=== PATIENT | female | born 1945 | race Caucasian/White ===

== ENCOUNTER → 2017-06-15 | Outpatient (CLI) | payer OTHER | LOC: CIMAGING 13:57 | PROVIDERS: ATTEND Internal Medicine | DX: Z12.31 Encounter for screening mammogram for malignant neoplasm of breast (principal) | CPT/HCPCS: G0202 ==

== ENCOUNTER → 2017-07-05 | Outpatient (CLI) | payer OTHER | LOC: CIMAGING 12:41 | PROVIDERS: ATTEND Internal Medicine | DX: Z12.39 Encounter for other screening for malignant neoplasm of breast (principal); R92.8 Other abnormal and inconclusive findings on diagnostic imaging of breast | CPT/HCPCS: G0206 ==

== ENCOUNTER 2019-02-15 16:59 | Inpatient (IN) | payer OTHER ==
[2019-02-15] MEDS ORDERED: NS 1,000 ML IV ONE (17:23)
[2019-02-15] MEDS ORDERED: KETOROLAC 30 MG/1 ML SDV IVP ONE (17:25)
--- NOTE | 2019-02-15 17:25 | EDPHY ---
H & P Stated Complaint: sob phipps fatigue x 1 week , had cruise and flight from [facility] Time Seen by Provider: 02/15/19 17:17 HPI/ROS: CHIEF COMPLAINT: Shortness of breath, palpitations and headache HISTORY OF PRESENT ILLNESS: The patient is a 73-year-old female with history of fibromyalgia and PVCs controlled with metoprolol. She reports experiencing flushing, shortness of breath and palpitations when she got off the flight from a recent cruise trip on Monday. Her had to get her a wheelchair in the airport because she was so short of breath. Throughout the week she has had intermittent return of her symptoms accompanied by headache and neck and shoulder and upper back pain. Today her symptoms got significantly worse again when she was at an event with her they decided to come to the emergency department. 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 She is not a smoker. She is not diabetic. She denies coronary artery disease. She has not had any vision changes. No focal weakness deficits or stroke-like symptoms. No lightheadedness or fainting. Severity: Moderate Modifying factors: Intermittent without predictable pattern REVIEW OF SYSTEMS: Constitutional: denies: chills, fever, recent illness, recent injury EENTM: denies: blurred vision, double vision, nose congestion Respiratory: See HPI Cardiac: See HPI denies: chest pain, lightheadedness, Gastrointestinal/Abdominal: denies: abdominal pain, diarrhea, nausea, vomiting, blood streaked stools Genitourinary: denies: dysuria, frequency, hematuria, pain Musculoskeletal: See HPI Skin: denies: lesions, rash, jaundice, bruising Neurological: See HPI, denies numbness weakness or paresthesias. Hematologic/Lymphatic: denies: blood clots, easy bleeding, easy bruising Immunologic/allergic: denies: HIV/AIDS, transplant 10 systems reviewed and negative except as noted EXAM: GENERAL: Well-appearing, overweight and in no acute distress. HEAD: Atraumatic, normocephalic. EYES: Pupils equal round and reactive to light, extraocular movements intact, sclera anicteric, conjunctiva are normal. ENT: TMs normal, nares patent, oropharynx clear without exudates. Moist mucous membranes. NECK: Normal range of motion, supple without lymphadenopathy or JVD. LUNGS: Breath sounds clear to auscultation bilaterally and equal. No wheezes rales or rhonchi. HEART: Regular rate and rhythm without murmurs, rubs or gallops. ABDOMEN: Soft, nontender, normoactive bowel sounds. No guarding, no rebound. No masses appreciated. BACK: No CVA tenderness, no spinal tenderness, step-offs or deformities EXTREMITIES: Normal range of motion, no pitting or edema. No clubbing or cyanosis. NEUROLOGICAL: Cranial nerves II through XII grossly intact. Normal speech, normal gait. 5/5 strength, normal movement in all extremities, normal sensation , normal reflexes PSYCH: Normal mood, normal affect. SKIN: Warm, dry, normal turgor, no visible rashes or lesions. Source: Patient Exam Limitations: No limitations - Personal History Current Tetanus/Diphtheria Vaccine: Unsure Current Tetanus Diphtheria and Acellular Pertussis (TDAP): Unsure - Medical/Surgical History Hx Asthma: No Hx Chronic Respiratory Disease: No Hx Diabetes: No Hx Cardiac Disease: No Hx Renal Disease: No Hx Cirrhosis: No Hx Alcoholism: No Hx HIV/AIDS: No Hx Splenectomy or Spleen Trauma: No Other PMH: fibromyalgia, anxiety, htn, tonsils, gb, hyst. PVC's - Family History Significant Family History: No pertinent family hx - Social History Smoking Status: Never smoked Alcohol Use: None Constitutional: Initial Vital Signs Temperature (C) 36.8 C 02/15/19 17:06 Heart Rate 90 02/15/19 17:06 Respiratory Rate 18 02/15/19 17:06 Blood Pressure 152/100 H 02/15/19 17:06 O2 Sat (%) 90 L 02/15/19 17:06 O2 Delivery Mode Room Air Allergies/Adverse Reactions: Penicillins Allergy (Verified 02/15/19 17:12) Sulfa (Sulfonamide Antibiotics) Allergy (Verified 02/15/19 17:12) Home Medications: Medication Instructions Recorded Metoprolol Tartrate [Lopressor 25 25 mg PO BID 03/02/15 mg (*)] Amitriptyline HCl 02/15/19 Citalopram 02/15/19 Valsartan-Hctz 80-12.5 mg Tab 02/15/19 levOFLOXACIN [levAQUIN] 750 mg PO DAILY #10 tab 02/15/19 Medical Decision Making - Diagnostics EKG Interpretation: An EKG obtained and was read and documented in trace view. Please see trace view for full reading and report. Sinus rhythm, nonspecific T-wave abnormalities unchanged from previous in 2014 A repeat EKG obtained and was read and documented in trace view. Please see trace view for full reading and report. Sinus rhythm, nonspecific T-wave abnormalities, unchanged Imaging Results: Imaging Impressions Chest X-Ray 02/15/19 17:23 Impression: 1. Left lower lobe pneumonia. 2. Superimposed bronchitis/airways disease. 3. Chronically elevated right hemidiaphragm. 4. Recommend follow-up until clear. Head CT 02/15/19 17:23 Impression: There is no acute intracranial abnormality identified on this unenhanced CT evaluation. If there is further clinical concern regarding the patient's symptoms, MR imaging is suggested, if not otherwise contraindicated. Findings were discussed with KELLIE HAMMOND MD at 17:51, on 02/15/2019. Abdomen/Pelvis CTA 02/15/19 18:08 Impression: 1. Atherosclerotic abdominal aorta, without aneurysm or dissection. 2. Sigmoid diverticulosis, without diverticulitis or bowel obstruction. Findings and recommendations discussed with Emergency Department physician, Kellie Hammond M.D., at 1850 hours, on February 15, 2019. Final report concurs with initial preliminary interpretation. Chest/Thorax CTA 02/15/19 18:08 Impression: 1. No aortic aneurysm or dissection. 2. No definite pulmonary thromboemboli. 3. Bilateral diffuse nonspecific interstitial lung disease, and therefore superimposed pneumonitis/pneumonia cannot be excluded. Findings and recommendations discussed with Emergency Department physician, Kellie Hammond at 1850 hour, 02/15/2019. Final report concurs with initial preliminary interpretation. Imaging: Discussed imaging studies w/ heavy equipment service technician Radiologist ED Course/Re-evaluation: 6:00 p.m. the patient had sudden onset of back pain below her shoulder blades. She describes it as a pressure. On evaluation she is scared in tearful. She denies chest pain or shortness of breath or abdominal pain. I have ordered a CT scan to evaluate her aorta. She is not hypotensive. Her EKG is unchanged. 7:30 p.m. the patient is doing well. She is saturating 96% on room air. She is feeling better. Antibiotics are infusing. She does not have any QT prolongation on her EKG today. We discussed the potential complications of Levaquin. She has allergies to penicillin and sulfa. 8:15 p.m. the patient is desaturating to 82% on room air. She wear CPAP at night but she is not currently sleeping. Will admit for further workup. Will add blood cultures and lactate. Differential Diagnosis: Partial list of the Differential diagnosis considered include but were not limited to; pneumonia, PE, dissection and although unlikely based on the history and physical exam, I also considered aneurysm, migraine, acute coronary disease, sepsis. - Data Points Laboratory Results: 02/15/19 02/15/19 18:13 18:02 POC Sodium 146 mEq/L H mEq/L (135-145) POC Potassium 4.0 mEq/L mEq/L (3.3-5.0) POC Chloride 99.0 mEq/L mEq/L (97-110) POC Total CO2 29 mEq/L mEq/L (22-31) POC BUN 16 mg/dL mg/dL (7-23) POC Creatinine 1.0 mg/dL mg/dL (0.6-1.0) POC Glucose 100 mg/dL mg/dL (70-100) POC Calcium 9.8 mg/dL mg/dL (8.5-10.4) POC Total Bilirubin 0.6 mg/dL mg/dL (0.1-1.4) POC AST 28 IU/L IU/L (14-46) POC ALT 23 IU/L IU/L (9-52) POC Alk Phosphatase 76 IU/L IU/L (38-126) POC Troponin I 0.00 ng/mL ng/mL (0.00-0.08) POC Total Protein 7.1 g/dL g/dL (6.3-8.2) POC Albumin 3.2 g/dL L g/dL (3.5-5.0) Medications Given: Discontinued Medications Sodium Chloride (Ns) 1,000 mls @ 0 mls/hr IV ONCE ONE; Wide Open PRN Reason: Protocol Stop: 02/15/19 17:24 Last Admin: 02/15/19 18:12 Dose: 1,000 mls Levofloxacin/Dextrose (Levaquin 750 Mg (Premix)) 150 mls @ 100 mls/hr IV EDNOW ONE PRN Reason: Protocol Stop: 02/15/19 20:24 Last Admin: 02/15/19 19:30 Dose: 150 mls Ketorolac Tromethamine (Toradol) 15 mg IVP EDNOW ONE Stop: 02/15/19 17:26 Last Admin: 02/15/19 18:14 Dose: 15 mg Point of Care Test Results: CBC CBC Collection Date 02/15/19 CBC Collection Time 17:55 WBC 7.80 RBC 4.11 HGB 13.2 HCT 40.6 PLT 265 Neut # 4.67 Neut 59.9 LYMPH # 1.84 LYMPH 23.3 MCV 98.8 Chemistry 02/15/19 02/15/19 18:13 18:02 POC Sodium 146 mEq/L H mEq/L (135-145) POC Potassium 4.0 mEq/L mEq/L (3.3-5.0) POC Chloride 99.0 mEq/L mEq/L (97-110) POC Total CO2 29 mEq/L mEq/L (22-31) POC BUN 16 mg/dL mg/dL (7-23) POC Creatinine 1.0 mg/dL mg/dL (0.6-1.0) POC Glucose 100 mg/dL mg/dL (70-100) POC Calcium 9.8 mg/dL mg/dL (8.5-10.4) POC Total Bilirubin 0.6 mg/dL mg/dL (0.1-1.4) POC AST 28 IU/L IU/L (14-46) POC ALT 23 IU/L IU/L (9-52) POC Alk Phosphatase 76 IU/L IU/L (38-126) POC Troponin I 0.00 ng/mL ng/mL (0.00-0.08) POC Total Protein 7.1 g/dL g/dL (6.3-8.2) POC Albumin 3.2 g/dL L g/dL (3.5-5.0) D-Dimer D-Dimer Collection Date 02/15/19 D-Dimer Collection Time 16:55 D-Dimer (ng/ml) 801 Departure - Departure Disposition: [facility] Acute Clinical Impression: Pneumonia Qualifiers: Pneumonia type: due to unspecified organism Laterality: left Lung location: lower lobe of lung Qualified Code(s): J18.1 - Lobar pneumonia, unspecified organism Condition: Fair
--- NOTE | 2019-02-15 17:58 | CPEKG ---
Test Reason : OPEN Blood Pressure : / mmHG Vent. Rate : 081 BPM Atrial Rate : 081 BPM P-R Int : 167 ms QRS Dur : 091 ms QT Int : 371 ms P-R-T Axes : 037 047 029 degrees QTc Int : 431 ms Sinus rhythm Nonspecific T abnormalities, anterior leads Confirmed by Arian Serna ([id number]) on 02/15/2019 5:57:48 PM Referred By: Arian Serna Confirmed By:Arian Serna
[2019-02-15] MEDS ORDERED: IOPAMIDOL (ISOVUE 370) 100 ML BTL IV ONE (18:20)
[2019-02-15] MEDS ORDERED: ALBUTEROL 3 ML DEYVIAL IH PRN (23:01)
[2019-02-15] MEDS ORDERED: ACETAMINOPHEN 325 MG TAB PO PRN (23:01)
[2019-02-15] MEDS ORDERED: ONDANSETRON DISINTEGRATING 4 MG TAB PO PRN (23:01)
[2019-02-15] MEDS ORDERED: ONDANSETRON 4 MG/2 ML VIAL IVP PRN (23:01)
--- NOTE | 2019-02-15 23:50 | PDGENHP ---
History and Physical - Chief Complaint Shortness of breath - History of Present Illness 73 yo F w/ hx of PVCs on BB, HTN, anxiety, and fibromyalgia presents with shortness of breath. The patient went on a bonny to the [facility] and returned one week ago. Since returning she has experienced shortness of breath, dyspnea on exertion, and fatigue. She has also noted a mild, dry cough but denies fevers. Today she also noted back pain so she presented to the [facility] for evaluation. In the [facility] she was noted to be mildly hypoxic but with 0/4 SIRS criteria. CTA of the chest revealed no PE but bilateral interstitial infiltrates of unclear etiology. She is being admitted for evaluation of this. Case discussed with Dr. Payan; records reviewed and summarized above. History Information - Allergies/Home Medication List Allergies/Adverse Reactions: Penicillins Allergy (Verified 02/15/19 17:12) Sulfa (Sulfonamide Antibiotics) Allergy (Verified 02/15/19 17:12) Home Medications: Metoprolol Tartrate [Lopressor 25 mg (*)] 25 mg PO BID 03/02/15 [Last Taken 22:00] Amitriptyline HCl 02/15/19 [Last Taken Unknown] Citalopram 02/15/19 [Last Taken Unknown] Valsartan-Hctz 80-12.5 mg Tab 02/15/19 [Last Taken Unknown] I have personally reviewed and updated: family history, medical history - Past Medical History hypertension Additional medical history: PVCs, on BB. Anxiety. Fibromyalgia - Surgical History Reports: hysterectomy - Family History Positive for: cancer (Lung CA in her father) - Social History Smoking Status: Never smoked Alcohol Use: None Review of Systems Review of Systems: ROS: 10pt was reviewed & negative except for what was stated in HPI & below Physical Exam Physical Exam: Temp Pulse Resp BP Pulse Ox 36.7 C 78 16 172/95 H 92 02/15/19 22:40 02/15/19 22:40 02/15/19 22:40 02/15/19 22:40 02/15/19 22:40 O2 (L/minute) 2 Constitutional: no apparent distress, obese Eyes: PERRL, EOMI Ears, Nose, Mouth, Throat: moist mucous membranes, no oral mucosal ulcers Cardiovascular: regular rate and rhythym, no murmur, rub, or gallop, No edema Respiratory: no respiratory distress, inspiratory crackles (Bilateral bases) Gastrointestinal: normoactive bowel sounds, soft, non-tender abdomen Skin: warm, normal color Musculoskeletal: full muscle strength, no muscle tenderness Neurologic: AAOx3, CN II-XII Intact Psychiatric: interacting appropriately, not anxious Lab Data & Imaging Review POC Blood Source VENOUS 02/15/19 21:07 Patient Temperature 36.8 DEGREES 02/15/19 21:07 POC VBG pH 7.43 (7.31-7.42) H 02/15/19 21:07 POC VBG pCO2 39 mmHg (40-44) L 02/15/19 21:07 POC VBG pO2 40 mmHg (35-40) 02/15/19 21:07 POC VBG HCO3 26 mEq/L (22-26) 02/15/19 21:07 POC VBG Total CO2 27 mEq/L (21-27) 02/15/19 21:07 POC VBG Base Excess 2.0 mEq/L (-2.5-2.5) 02/15/19 21:07 POC Mix VBG O2 Sat 77 % (65-75) H 02/15/19 21:07 POC Sodium 146 mEq/L (135-145) H 02/15/19 18:02 POC Potassium 4.0 mEq/L (3.3-5.0) 02/15/19 18:02 POC Chloride 99.0 mEq/L (97-110) 02/15/19 18:02 POC Total CO2 29 mEq/L (22-31) 02/15/19 18:02 POC BUN 16 mg/dL (7-23) 02/15/19 18:02 POC Creatinine 1.0 mg/dL (0.6-1.0) 02/15/19 18:02 POC Glucose 100 mg/dL (70-100) 02/15/19 18:02 POC Lactic Acid Kalpesh 2.1 mmol/L (0.7-2.1) 02/15/19 21:07 POC Calcium 9.8 mg/dL (8.5-10.4) 02/15/19 18:02 POC Total Bilirubin 0.6 mg/dL (0.1-1.4) 02/15/19 18:02 POC AST 28 IU/L (14-46) 02/15/19 18:02 POC ALT 23 IU/L (9-52) 02/15/19 18:02 POC Alk Phosphatase 76 IU/L (38-126) 02/15/19 18:02 POC Troponin I 0.00 ng/mL (0.00-0.08) 02/15/19 18:13 POC Total Protein 7.1 g/dL (6.3-8.2) 02/15/19 18:02 POC Albumin 3.2 g/dL (3.5-5.0) L 02/15/19 18:02 Imaging Review: Imaging Impressions Chest X-Ray 02/15/19 17:23 Impression: 1. Left lower lobe pneumonia. 2. Superimposed bronchitis/airways disease. 3. Chronically elevated right hemidiaphragm. 4. Recommend follow-up until clear. Head CT 02/15/19 17:23 Impression: There is no acute intracranial abnormality identified on this unenhanced CT evaluation. If there is further clinical concern regarding the patient's symptoms, MR imaging is suggested, if not otherwise contraindicated. Findings were discussed with ARIAN HAMMOND MD at 17:51, on 02/15/2019. Abdomen/Pelvis CTA 02/15/19 18:08 Impression: 1. Atherosclerotic abdominal aorta, without aneurysm or dissection. 2. Sigmoid diverticulosis, without diverticulitis or bowel obstruction. Findings and recommendations discussed with Emergency Department physician, Arian Hammond M.D., at 1850 hours, on February 15, 2019. Final report concurs with initial preliminary interpretation. Chest/Thorax CTA 02/15/19 18:08 Impression: 1. No aortic aneurysm or dissection. 2. No definite pulmonary thromboemboli. 3. Bilateral diffuse nonspecific interstitial lung disease, and therefore superimposed pneumonitis/pneumonia cannot be excluded. Findings and recommendations discussed with Emergency Department physician, Arian Hammond at 1850 hour, 02/15/2019. Final report concurs with initial preliminary interpretation. Assessment & Plan Assessment: 73 yo F w/ hx of HTN, PVCs, anxiety, and FM presents with hypoxia and found to have possible pneumonia. Plan: 1. Dyspnea on exertion - Present for one week after returning from a cruise. CXR (personally reviewed/interpreted) suggests LLL pneumonia but CTA demonstrated bilateral, diffuse nonspecific infiltrates. 0/4 SIRS criteria present on admission. Viral pneumonia vs. other ILD vs. cardiac etiology are considerations. - S/p levofloxacin x1 in ED - Will observe off of further antibiotics for now - Respiratory PCR, procalcitonin, BNP ordered - Will obtain TTE - Monitor on telemetry 2. Hypoxia - Mild, currently requiring 2-3 L/min O2 to maintain O2 sats>89%. Etiology is presumably related to bilateral infiltrates. She has hx of LUIS but does not use O2 at baseline. - Acute work-up as above - Continue O2 PRN - Incentive spirometry ordered 3. Hx PVCs - On metoprolol for this, she says her last echocardiogram was more than 5 years ago. - Repeat TTE - Monitor on telemetry - Continue metoprolol 4. HTN - Continue home medications pending reconciliation 5. Anxiety, FM - Continue home medications pending reconciliation Diet - Regular Code - Full Ppx - LMWH Dispo - Admit under observation status
[2019-02-16] MEDS ORDERED: METOPROLOL TARTRATE 25 MG TAB PO ONE (00:34)
[2019-02-16] MEDS ORDERED: AMITRIPTYLINE HCL 25 MG TAB PO ONE (00:34)
[2019-02-16 05:23] LABS: PLATELET COUNT 229 10^3/uL (150-400)
[2019-02-16] MEDS: ENOXAPARIN 40 MG/0.4 ML SYR SC SCH (09:32)
--- NOTE | 2019-02-16 14:58 | ECHO ---
[email or web address] [address] [address] Main: [phone] Echocardiography Examination Transthoracic Name: NICK MOORE MR#: [id number] Study Date: 02/16/2019 Study Time: 12:03 PM Date of : 1945 Age: 73 year(s) Height: 160 cm (63 in.) Weight: 85.28 kg (188 lb.) BSA: 1.88 m2 Gender: Female Examination: Echo Contrast: Image Quality: Adequate Rhythm: Normal sinus rhythm Heart Rate: 69 bpm BP: 112 mmHg/62 mmHg Indication: PNA, Hypoxia Procedure Staff Referring Physician: Cluster Bore Operator: Tariq Edward RDCS Reading Physician: Amilcar Trujillo MD Requesting Provider: Indication: PNA, Hypoxia Measurements Chambers AV/MV Label Value Normal Value Label Value Normal Value LVOT Vmax 0.91 m/s (0.7m/s - 1.1m/s) AV PGmax 7 mmHg LVOTd 1.9 cm (1.8cm - 2cm) AV PGmean 4 mmHg LVOT PGmax 3 mmHg AV Vmax 1.3 m/s LVDd, 2D 4.2 cm (3.9cm - 5.3cm) RU (Vmax) 2 cm2 LVDs, 2D 2.6 cm (2.1cm - 4cm) RU (VTI) 1.9 cm2 IVSd, 2D 1 cm (0.6cm - 1.1cm) MV E Vmax 0.83 m/s LVPWd, 2D 1.1 cm MV A Vmax 0.92 m/s LVEF, 2D 68 % (54% - 74%) MV E/A 0.9 LVOT PGmean 2 mmHg MV E/E' lateral 19.8 LVOT Vmean 0.59 m/s MV E/E' septal 17 (0.45 - 1.25) RVDd, 2D 2.6 cm (1.9cm - 3.8cm) MV E' septal 0.05 m/s LA Volume, BP 47 ml (22ml - 52ml) MV E' lateral 0.04 m/s LAESV index, BP 25 ml/m2 MV E/E' mean 18.44 Additional Vessels MV E' mean 0.04 m/s Label Value Normal Value TV/PV AoAsc 3 cm Label Value Normal Value AoRoot, MM 3.1 cm (2.2cm - 3.7cm) PV PGmax 3 mmHg PV Vmax, Caliper 0.81 m/s (0.6m/s - 0.9m/s) Patient: NICK MOORE Study Date: 02/16/2019 Page 1 of 3 12:03 PM Conclusions Left Ventricle: Poor apical views due to lung interference, Pneumonia. Left ventricle is normal in size. Normal global systolic left ventricular function. The EF is visually estimated to be 70 %. Cannot determine LAP and Diastolic Dysfunction Grade. Right Ventricle: Right ventricular systolic function is normal. Pericardium: No pericardial effusion. Findings Left Ventricle: Poor apical views due to lung interference, Pneumonia. Left ventricle is normal in size. Normal global systolic left ventricular function. The EF is visually estimated to be 70 %. EF range is estimated at 65 % - 70 %. The LV wall thickness is at the upper limits of normal. There are no regional wall motion abnormalities. Cannot determine LAP and Diastolic Dysfunction Grade. Right Ventricle: Normal size right ventricle. Right ventricular systolic function is normal. Left Atrium: The left atrium is normal in size. Right Atrium: The right atrium is normal in size. Mitral Valve: Mitral valve appears structurally normal. No mitral regurgitation. No mitral valve stenosis. Aortic Valve: Aortic leaflets are normal in appearance and function. No aortic valve regurgitation. There is no aortic stenosis. The aortic valve is trileaflet. Tricuspid Valve: Tricuspid valve leaflets are normal in appearance and function. No tricuspid regurgitation. Pulmonary artery pressure normal. Pulmonic Valve: Pulmonic leaflets are normal in appearance and function. No pulmonic valve regurgitation is evident. Aorta: The aorta is normal. The aortic root size in M-mode measures 3.1 cm. The ascending aorta measures 3.0 cm. Aorta Measurements AoRoot, MM is 3.1 cm. Pericardium: No pericardial effusion. Exam Details Procedure Ordered: Echo Procedure Status: Routine study Image Quality: Adequate Facility Location: Cardiac Echo 1 (No Signature Object) Patient: NICK MOORE Study Date: 02/16/2019 Page 2 of 3 12:03 PM Patient: NICK MOORE Study Date: 02/16/2019 Page 3 of 3 12:03 PM [id number]
--- NOTE | 2019-02-16 15:10 | HOSPPROG ---
Hospitalist Progress Note Assessment/Plan: 73 yo F w/ hx of HTN, PVCs, anxiety, and FM presents with dyspnea and hypoxemia. Plan: Dyspnea / Hypoxemia - CT suggests ILD vs pneumonitis or pneumonia with diffuse b /l interstitial changes. Also consider HAPE [place] of symptoms. PCT neg, afebrile, nl wbc's. Echo reassuring, BNP nl. Currently 90% on 4 LPM. Reviewed case and imaging with pulmonology, Dr. Weaver will consult tomorrow - Cont Levaquin for possibility of atypical infection - Trial IV lasix for possible HAPE - Start QID nebs - pulm consult in am Hx PVCs - echo reassuring - Continue metoprolol HTN - Continue home meds Anxiety, FM - Continue TCA, SSRI Diet - Regular Code - Full Ppx - LMWH Dispo - change to inpt for ongoing hypoxemia Subjective: Pt feels about the same. Still SOB and tired. Denies wheezing. No fevers/chills. No cough. No CP. No peripheral edema or orthopnea. Objective: Vital Signs Temp Pulse Resp BP Pulse Ox 36.8 C 68 18 112/62 92 02/16/19 11:57 02/16/19 11:57 02/16/19 11:57 02/16/19 11:57 02/16/19 11:57 Laboratory Results 02/16/19 04:44 02/16/19 04:44 02/15/19 02/16/19 02/17/19 05:59 05:59 05:59 Intake Total 1525 Output Total 400 Balance 1125 - Physical Exam Constitutional: no apparent distress Eyes: PERRL Ears, Nose, Mouth, Throat: moist mucous membranes Cardiovascular: regular rate and rhythym Respiratory: no respiratory distress, inspiratory crackles Gastrointestinal: normoactive bowel sounds, soft, non-tender abdomen Skin: warm Musculoskeletal: full muscle strength Neurologic: AAOx3 Psychiatric: interacting appropriately ICD10 Worksheet Patient Problems: Problems Problem Status Onset Pneumonia Acute Chest pain Acute
[2019-02-16] MEDS ORDERED: VALSARTAN PO SCH (15:15)
[2019-02-16] MEDS ORDERED: [UNRECOGNIZED DRUG - OTHER] PO SCH (15:15)
[2019-02-16] MEDS ORDERED: HYDROCHLOROTHIAZIDE PO SCH (15:15)
[2019-02-16] MEDS ORDERED: FUROSEMIDE 20 MG/2 ML VIAL IVP ONE (15:57)
[2019-02-16] MEDS: CITALOPRAM 20 MG TAB PO SCH (15:59)
[2019-02-16] MEDS ORDERED: POTASSIUM CL 10 MEQ TAB PO ONE (16:01)
--- NOTE | 2019-02-16 16:08 | ASMTCMCOM ---
CM Note CM Note Notes: Pt admitted with SOB, palpitations, possible PNA. She went on a cruise to the [facility] and returned a week ago. She has had these sx off and on since she arrived at the airport. Pt lives with her in [place]. She is currently on 4L O2. No PT/OT evals ordered at this time. Pulmonary consult requested. CM will follow for any d/c needs. D/C plan: TBD Date Signed: 02/16/2019 04:08 PM Electronically Signed By:DAISY Perez
[2019-02-16] MEDS: HYDROCHLOROTHIAZIDE 25 MG TAB PO SCH (16:32)
[2019-02-16] MEDS: VALSARTAN 160 MG TAB PO SCH (16:32)
[2019-02-16] MEDS: IPRATROPIUM/ALBUTEROL 3 ML DEYVIAL IH SCH ×2 (17:00→20:26)
--- NOTE | 2019-02-16 18:54 | PDMN ---
Medical Necessity Medical necessity: [facility] Pulmonary Disease: 73 yo presents w/ SOB and IGLESIAS x1 week. Eval revealed LLL pneumonia vs. infiltrates and possible cardiac etiology. Initailly OBS for workup/tx. Pt changed to IP status meeting [facility] IP criteria/med nec for ongoing dyspnea and hypoxemia beyond OBS care. CT suggests ILD vs. pneumonitis or pneumonia w/ diffuse B/L interstitial changes but considering HAPE as pt recently [place]. Pt still requiring O2 to maintain sats>90%, remains of IV antibx, start nebs, trial IV Lasix for poss HAPE. Pulm consult ordered. Hx HTN, PVC on BB, anxiety, fibromyalgia. Change to IP status 02/16/19@1511 per MD order.
[2019-02-16] MEDS: METOPROLOL TARTRATE 25 MG TAB PO SCH (22:29)
[2019-02-16] MEDS: CHLORDIAZEPOXIDE PO SCH (22:42)
[2019-02-16] MEDS: AMITRIPTYLINE PO SCH (22:42)
[2019-02-17] MEDS: IPRATROPIUM/ALBUTEROL 3 ML DEYVIAL IH SCH ×4 (04:47→21:19)
[2019-02-17] MEDS: CITALOPRAM 20 MG TAB PO SCH (09:47)
[2019-02-17] MEDS: METOPROLOL TARTRATE 25 MG TAB PO SCH ×2 (09:48→21:32)
[2019-02-17] MEDS: ENOXAPARIN 40 MG/0.4 ML SYR SC SCH (09:50)
[2019-02-17] MEDS: VALSARTAN 160 MG TAB PO SCH (09:50)
[2019-02-17] MEDS: HYDROCHLOROTHIAZIDE 25 MG TAB PO SCH (09:50)
[2019-02-17] MEDS ORDERED: FUROSEMIDE 20 MG/2 ML VIAL IVP ONE (10:26)
[2019-02-17] MEDS ORDERED: POTASSIUM CL 10 MEQ TAB PO ONE (10:26)
--- NOTE | 2019-02-17 10:29 | HOSPPROG ---
Hospitalist Progress Note Assessment/Plan: 73 yo F w/ hx of HTN, PVCs, anxiety, and FM presents with dyspnea and hypoxemia. Plan: Dyspnea / Hypoxemia - CT suggests ILD vs pneumonitis or pneumonia with diffuse b /l interstitial changes. Also consider HAPE [place] to onset of symptoms and appearance of CT could represents some fluid. Seems like she was responsive to Lasix yesterday with O2 requirement down to 2 LPM from 4 LPM. RVP neg. PCT neg, afebrile, nl wbc's. Echo reassuring, BNP nl. Currently 90% on 4 LPM. Reviewed case and imaging with pulmonology, Dr. Weaver will consult. - Cont Levaquin for possibility of atypical infection - Repeat IV Lasix - Cont nebs - cont to wean O2 as able - pulm consult Hx PVCs - echo reassuring - Continue metoprolol HTN - Continue home meds Anxiety, FM - Continue TCA, SSRI Diet - Regular Code - Full Ppx - LMWH Dispo - cont inpt Subjective: Pt just woke up, complains of headache. No fevers/chills. Coughing a bit more today, notes increased cough after nebs, seems to help clear things a bit. No CP or SOB at rest. Hasn't tried much activity. Objective: Vital Signs Temp Pulse Resp BP Pulse Ox 36.9 C 74 18 118/73 94 02/17/19 07:55 02/17/19 09:48 02/17/19 07:55 02/17/19 09:48 02/17/19 09:56 Laboratory Results 02/16/19 04:44 02/17/19 03:08 02/16/19 02/17/19 02/18/19 05:59 05:59 05:59 Intake Total 1525 250 Output Total 400 2620 Balance 1125 -2370 - Physical Exam Constitutional: no apparent distress Eyes: PERRL Ears, Nose, Mouth, Throat: moist mucous membranes Cardiovascular: regular rate and rhythym Respiratory: no respiratory distress, inspiratory crackles Gastrointestinal: normoactive bowel sounds, soft, non-tender abdomen Skin: warm Musculoskeletal: full muscle strength Neurologic: AAOx3 Psychiatric: interacting appropriately ICD10 Worksheet Patient Problems: Problems Problem Status Onset Pneumonia Acute Chest pain Acute
--- NOTE | 2019-02-17 15:30 | GHP ---
[f rep st] HISTORY AND PHYSICAL PULMONARY/CRITICAL CARE CONSULTATION. DATE OF ADMISSION: 02/15/2019 REFERRING PHYSICIAN: Sita Gibson MD REASON FOR REFERRAL: Evaluation and management of dyspnea, hypoxemia, and pulmonary infiltrates. HISTORY: The patient is a 73-year-old woman who states that she had no prior pulmonary history and w as in her usual state of good health when she went on a cruise. The cruise ended about a week ago an d she reported that she was doing well at that time, then stopped in [place] on the way back home a nd while in [place], noticed that she was a bit more short of breath with exertion than she had exp ected. She then returned to [place], and the dyspnea increased. There were no associated symptoms of fever, chills, cough, rhinitis, myalgias, or chest pain. These symptoms occurred only with exerti on, not at rest. There was some flushing, but that was the only other symptom she can identify. Her symptoms seemed to get a bit better after a few days, but then worsened which prompted the patient t o present to [facility] for [place]. She was found to be hypoxemic and a CT scan of the chest was done t o exclude PE, which showed no pulmonary embolism but did show some interstitial and ground-glass infi ltrates. The patient reports that since being in the hospital she feels about the same. PAST MEDICAL HISTORY: 1. Fibromyalgia. 2. Hypertension. 3. Obstructive sleep apnea on CPAP. 4. PVCs. 5. Urinary tract infections. The patient has had urinary tract infections in the past. About 3-4 w eeks ago she had symptoms of urinary tract infection for which she was prescribed Macrodantin which s he took for about 2-3 days approximately 3 weeks ago, before stopping it and changing to Cipro. MEDICATIONS: At time of admission include Lopressor, amitriptyline, citalopram, and valsartan/HCTZ. ALLERGIES: Penicillin and sulfa. SOCIAL HISTORY: The patient has never smoked. FAMILY HISTORY: Positive for lung cancer. REVIEW OF SYSTEMS: A 10-point review of systems adds nothing to the history of present illness. PHYSICAL EXAMINATION: GENERAL: The patient is awake and alert. She is in no acute distress. VITAL SIGNS: Her blood pressure is 100/55 with a heart rate of 67. She is afebrile. Oxygen saturations are 98% on 1 L, up from 92% on 2 L 2 days ago. Her oxygen saturations were 82% on room air this morn ing. HEENT: Normocephalic and atraumatic. No icterus. NECK: No JVD. Trachea is midline. CHEST: She has bibasilar rales. CARDIAC: Regular rate and rhythm without murmur. ABDOMEN: Soft, nonten nathalie. Bowel sounds are present. EXTREMITIES: No clubbing, cyanosis, or edema. NEURO: The patient is awake and alert. She has no gross motor or sensory deficits. LABORATORY: Chemistry group is remarkable for hemoglobin of 12.0. White blood count is 7.3 with 7.7 % eosinophils and an absolute eosinophil count of 0.56. Chemistry group is normal. Blood gas shows a pH of 7.43, a pO2 of 40, a CO2 of 39, and a bicarbonate of 27. A chest x-ray from 02/15 shows poss ible left lower lobe pneumonia and an elevated right diaphragm that was present in 2014. There may b e some bronchial thickening as well. A CT scan of the chest shows no pulmonary embolism. There is b ilateral diffuse interlobular septal thickening as well as some multiple small areas of scattered tiffany und-glass opacities. There is no honeycombing or other architectural changes. Images reviewed by me . Echocardiogram shows normal left ventricular systolic function and no evidence of pulmonary hypert ension. BNP is 48. Procalcitonin is 0.02. ASSESSMENT: 1. Pneumonitis. The patient has interstitial as well as some alveolar pneumonitis. There is associ ated dyspnea and hypoxemia. Differential diagnosis is fairly broad, including cardiogenic pulmonary edema, atypical pneumonia, and allergic/autoimmune pneumonitis. 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 The mild eosinophilia supports this. The timing is a bit off from the typical acute pneumonitis, and it is a bit delayed from the few days that she took the Macrodanti n and usually the symptoms and signs resolve a few days later, but I still think this is the most lik rashaun explanation for the findings. Pulmonary edema, particularly high altitude pulmonary edema, could certainly cause these findings, but the fact that she had symptoms immediately prior to ascending to high altitude argue against this. I suppose it is possible that she started to develop it at the ti me of the high altitude in her 1st plane trip from the [facility] to [place], but that seems to be a bit less likely. There are no signs of heart failure based on the echocardiogram or BNP. An atypic al pneumonia is also possible, but a respiratory panel was negative and she did not have any other sy mptoms to support an infectious cause. Regardless, the patient is currently being treated with Levaq uin as well and also received a dose of Lasix, and her oxygen needs have already started to come down . Although the use of steroids for Macrodantin induced pulmonary toxicity is not strongly indicated, given her symptoms as well as the fact that she has been she has not taken the Macrodantin for sever al weeks and still has findings that support the presence of hypersensitivity reaction, I think at le ast a short course of prednisone would be reasonable. 2. Elevated right hemidiaphragm. Contributed to the patient's symptoms. Appears to be chronic. Th e cause is unknown. 3. Obstructive sleep apnea. The patient has been diagnosed with sleep apnea and uses continuous pos itive airway pressure nightly. PLAN: 1. Complete a 5 day course of Levaquin. 2. Hold off on further Lasix. 3. Short course of prednisone, probably 40 mg daily for about 4 days, then 20 mg daily for about 4 d ays. 4. Get fluoroscopy of the diaphragm to determine if the patient has right diaphragm paralysis. 5. I think the patient can probably be discharged, possibly requiring oxygen, tomorrow if she is doi ng well. I can see the patient in followup in about 2 weeks with repeat chest imaging to determine i f further treatment is warranted. /[id number]/MODL
[2019-02-17] MEDS: predniSONE 20 MG TAB PO SCH (15:49)
[2019-02-17] MEDS: AMITRIPTYLINE PO SCH (21:34)
[2019-02-17] MEDS: CHLORDIAZEPOXIDE PO SCH (21:34)
[2019-02-18] MEDS: IPRATROPIUM/ALBUTEROL 3 ML DEYVIAL IH SCH (09:25)
[2019-02-18] MEDS: HYDROCHLOROTHIAZIDE 25 MG TAB PO SCH (10:13)
[2019-02-18] MEDS: CITALOPRAM 20 MG TAB PO SCH (10:14)
[2019-02-18] MEDS: predniSONE 20 MG TAB PO SCH (10:15)
[2019-02-18] MEDS: METOPROLOL TARTRATE 25 MG TAB PO SCH (10:16)
[2019-02-18] MEDS: VALSARTAN 160 MG TAB PO SCH (10:16)
[2019-02-18] MEDS: ENOXAPARIN 40 MG/0.4 ML SYR SC SCH (10:18)
--- NOTE | 2019-02-18 10:51 | PDHOMEO2F ---
Home Oxygen Face to Face Home Orders: I certify that a physician or a nurse practitioner or physician's clinic office assistant has had a [id number] encounter with this patient on the date of this order due to the diagnosis listed, which relates to the primary reason the patient requires home oxygen. Alternative treatments have been tried, or considered, and deemed ineffective. It is anticipated that supplemental oxygen will result in improvement with treatment. Home oxygen qualifying diagnosis: pneumonitis SpO2 on room air (%): 83 Frequency of home oxygen needed: continuous Home oxygen liters per minute: 2 LPM at rest, 4 LPM with activity Home oxygen delivery device: nasal cannula Concentrator: Yes E-tanks for mobility and back up: Yes If ordering portable O2, is the patient mobile in the home?: Yes I certify that, based on these findings, the home oxygen is medically necessary for this patient for the following length of time. Length of time home oxygen needed: 3 months
--- NOTE | 2019-02-18 11:15 | ASMTCMCOM ---
CM Note CM Note Notes: Pts case discussed w/ JENSEN Lan. Pt has no d/c needs at this itme. CM available f or changes. Plan: Independent Date Signed: 02/18/2019 10:56 AM Electronically Signed By:WILL Hsieh
[2019-02-18 11:43] VITALS: BP 107/57
--- NOTE | 2019-02-18 15:13 | GDS ---
[f rep st] DISCHARGE SUMMARY DISCHARGE DIAGNOSES: 1. 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 2. 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 3. Hypertension. 4. Anxiety. 5. 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 CONSULTANTS: Sina Weaver MD, Pulmonology. IMAGING STUDIES/PROCEDURES: 1. CT pulmonary angiogram February 15, 2019, was negative for aortic aneurysm, dissection, or pulmonary embolism. It did show bilateral diffuse nonspecific interstitial lung disease, possibly suggesting p neumonitis versus atypical pneumonia. 2. Abdomen and pelvis CT angiogram February 15, 2019, showed an atherosclerotic abdominal aorta without aneurysm or dissection. Sigmoid diverticulosis was noted without evidence of diverticulitis or bowel obstruction. 3. Echocardiogram February 15, 2019 showed normal left ventricular systolic function with an ejection fr action of 70%. No wall motion abnormalities. Normal right ventricular systolic function. No valve disease and no pericardial effusion. 4. Fluoroscopy of the diaphragm revealed the right hemidiaphragm appeared smooth, paradoxically supe riorly with inspiration. There was slight downward motion of the left hemidiaphragm. This suggested apparent paralysis of the right hemidiaphragm. 5. Head CT February 15, 2019, was negative for an acute intracranial abnormality. HISTORY: For details, please see history and physical dated February 15, 2019. In brief, the patient is a 73-year-old female with a history of hypertension, fibromyalgia, and anxiety, who presented to the emergency department with shortness of breath. She recently returned from a trip to the [facility] Upon landing in [place] where she lives, she developed acute shortness of breath and dyspnea on exe rtion. She waited nearly week, but her symptoms did not improve, and she presented to the emergency department where she was found to be hypoxemic with an oxygen saturation of 82% on room air. She was admitted to the hospital for further management. HOSPITAL COURSE: The patient was admitted to the progressive care unit. CT scan was reviewed sugges ting possible atypical infection versus pneumonitis versus interstitial lung disease. She has had no fevers or a cough. Her procalcitonin was negative. In addition, she was afebrile with a normal whi te blood cell count. However, she was still covered with Levaquin for the possibility of an atypical infection. She received nebulizers. A pulmonary consult was obtained, and further history revealed that she recently took a course of Macrodantin. Apparently, there are reports of Macrodantin-induce d pulmonary toxicity, and this was thought to be the leading diagnosis. She was started on prednison e 40 mg daily. She continues to have hypoxemia and will require oxygen at discharge. In addition, s he is noted to have an elevated right hemidiaphragm on her chest imaging. This was present several y ears back in comparison. She underwent fluoroscopy, which suggested paralysis of the diaphragm. Her symptoms have overall improved. On the day of discharge, her blood pressure is 107/57, heart rate 7 5, and respiratory rate 14. She is 86% on room air and saturating in the 90s on 2 L. She does requi re increased O2 requirement of 4 L/minute with activity. DISPOSITION: The patient is discharged home in stable condition with home oxygen, 2 L at rest and 4 L with activity. FOLLOWUP: 1. Dr. Kam Weaver in 2 weeks for followup on her presumed allergic pneumonitis, as well as her paraly sis of the right hemidiaphragm. She may warrant followup imaging at that time and can also reassess her O2 needs, and hopefully be able to wean off oxygen. 2. Dr. Linda Cortez, primary care. DISCHARGE MEDICATIONS: Please see [facility] for completed outpatient medication list. New medications on discharge include: 1. Levaquin 750 mg p.o. daily for one more dose to complete 5 days of treatment. 2. Prednisone 40 mg p.o. daily for 3 more days, then 20 mg p.o. daily for 4 days, and then off. 3. Albuterol inhaler 1 to 2 puffs inhaled q.4 h. p.r.n., 1, no refills. She will continue all other outpatient medications as previously prescribed. /[id number]/MODL
--- NOTE | 2019-02-19 13:26 | HOSPPROG ---
Hospitalist Progress Note Assessment/Plan: One tube of blood culture positive for gram positive cocci. It is still preliminary. I called the pt, Sia, and spoke to her re: pending blood culture. She reports she is feeling "ok, tired," no fever or chills. Counseled the pt about the pending culture and the possibility of an infection as well as the possibility of it being a contaminant. If she begins to feel poorly, fevers, chills, general malaise she should present to the emergency room as soon as possible. In the meantime, I will keep an eye on the final results of the blood culture and call her w/the final results. She verbalized understanding and had no further questions. Objective: Vital Signs Temp Pulse Resp BP Pulse Ox 37.1 C 75 14 107/57 L 91 L 02/18/19 11:40 02/18/19 11:40 02/18/19 11:40 02/18/19 11:40 02/18/19 12:00 Laboratory Results 02/17/19 03:08 02/18/19 02/19/19 02/20/19 05:59 05:59 05:59 Intake Total 800 Output Total 600 1000 Balance 200 -1000 ICD10 Worksheet Patient Problems: Problems Problem Status Onset Chest pain Acute Pneumonia Acute
--- NOTE | 2019-02-21 14:21 | HOSPPROG ---
Hospitalist Progress Note Assessment/Plan: One tube of blood culture positive for gram positive cocci. It is still preliminary. I called the pt, Sia, and spoke to her re: pending blood culture. She reports she is feeling "ok, tired," no fever or chills. Counseled the pt about the pending culture and the possibility of an infection as well as the possibility of it being a contaminant. If she begins to feel poorly, fevers, chills, general malaise she should present to the emergency room as soon as possible. In the meantime, I will keep an eye on the final results of the blood culture and call her w/the final results. She verbalized understanding and had no further questions. Update on 02/21/19 @ 141: Reviewed final report of pt's blood cultures and it was determined a "probable contaminant." Discussed this w/ ID Dr. Mulligan who confirms this is a contaminant. I called pt and spoke to her. She reports feeling much better. I reported to her it was a contaminant and she expressed relief. All questions and concerns were addressed during the phone call. Objective: Vital Signs Temp Pulse Resp BP Pulse Ox 37.1 C 75 14 107/57 L 91 L 02/18/19 11:40 02/18/19 11:40 02/18/19 11:40 02/18/19 11:40 02/18/19 12:00 Laboratory Results 02/17/19 03:08 ICD10 Worksheet Patient Problems: Problems Problem Status Onset Chest pain Acute Pneumonia Acute
== END 2019-02-18 14:14 | disposition home or self-care (01) | DRG 206 ==
LOC: CED 16:59 → CEDHOLD 20:31 → F2W 22:32 → OBSVTOIN 02-16 15:11
PROVIDERS: ADMIT Internal Medicine Critical Care Medicine; ATTEND Internal Medicine
DX: J70.2 Acute drug-induced interstitial lung disorders (principal); T36.8X1A Poisoning by other systemic antibiotics, accidental (unintentional), initial encounter; J69.8 Pneumonitis due to inhalation of other solids and liquids; I10 Essential (primary) hypertension; F41.9 Anxiety disorder, unspecified; J98.6 Disorders of diaphragm; E86.9 Volume depletion, unspecified; M79.7 Fibromyalgia; G47.33 Obstructive sleep apnea (adult) (pediatric); Z88.0 Allergy status to penicillin
CPT/HCPCS: 70450-PO; 71046-PO; 71275-PO; 80053-ER; 83605-ER; 84484-ER; 85025-QW-ER; 85379-QW-ER; 96361-ER; 96365-ER; 99285-ER; G0378; J1650; J1885; J1940; J1956; J7512; Q9967

== ENCOUNTER 2019-03-05 13:27 | Day surgery (SDC) | payer OTHER ==
[2019-03-05] MEDS ORDERED: LR 1,000 ML IV ONE (13:35)
[2019-03-05] MEDS ORDERED: ALBUTEROL 3 ML DEYVIAL IH ONE (13:36)
[2019-03-05] MEDS ORDERED: EPINEPHrine 1 MG/ML INJ ONE (15:48)
[2019-03-05] MEDS ORDERED: ALBUTEROL 3 ML DEYVIAL ONE (15:48)
[2019-03-05] MEDS ORDERED: LIDOCAINE 1% 300 MG/30 ML SDV ONE (15:49)
[2019-03-05] MEDS ORDERED: MIDAZOLAM 2 MG/2 ML VIAL ONE (15:49)
[2019-03-05] MEDS ORDERED: fentaNYL 100 MCG/2 ML INJ ONE (15:49)
[2019-03-05] MEDS ORDERED: OXYMETAZOLINE 30 ML NASAL SPRAY ONE (15:54)
[2019-03-05] MEDS ORDERED: LIDOCAINE 2% JELLY 6 ML TOPICAL SYR TP ONE (16:00)
[2019-03-05] MEDS ORDERED: OXYMETAZOLINE 30 ML NASAL SPRAY EACHNARE ONE (16:00)
--- NOTE | 2019-03-05 16:17 | PDPROPOC ---
Sedation Plan of Care Sedation Plan of Care: vital signs stable, mental status noted ASA Classification: ASA 2 Planned drugs: fentanyl, midazolam Mallampati Score: Class 3 Mallampati Reference Image: Patient passed 3-3-2 rule?: Yes
--- NOTE | 2019-03-05 16:17 | PDHPUP ---
History & Physical Update H&P update statement: This history and physical update is based on an assessment of the patient which was completed after admission or registration (within 24 hours), but prior to the surgery/procedure. H&P update: H&P reviewed & patient examined, no change in patient's condition since H&P completed
--- NOTE | 2019-03-05 17:12 | SUROPNOTE ---
[facility] Operative Report - Surgery PROCEDURE NOTE: Flexible bronchoscopy with bronchoalveolar lavage, transbronchial biopsies with moderate sedation Procedure Monotype Keyboard Operator S Jitendra Harden MD Procedure: Flexible bronchoscopy with bronchoalveolar lavage and transbronchial biopsies Moderate sedation time: 20 minutes Preoperative diagnosis: Pneumonia, respiratory failure Postoperative diagnosis: Pneumonia, respiratory failure Consent: Obtained from patient prior to procedure after explanation of the procedure, alternatives, risks, and benefits. Anesthesiologist NA Sedation Type: Moderate sedation Sedation Medications: fentanyl, versed Medications: Topical 4% lidocaine: 3 cc via nebulizer, Topical 1% lidocaine: 10 cc via bronchoscope: Procedure Summary: Time out was performed. The bronchoscope was introduced via the left nare without difficulty. The vocal cords were visualized and were normal appearing after anesthetizing the vocal cords with lidocaine the the scope was passed into the trachea. Multiple aliquots of 1% lidocaine were instilled into the distal trachea left and right mainstem bronchi. Next entire tracheobronchial tree was examined. Airway mucosa appeared normal throughout. There is scant clear secretions that were aspirated. Next for transbronchial biopsies were obtained in the right lower lobe. Scant bleeding was noted and ceased quickly. Next a formal bronchoalveolar lavage was performed in the lateral segment of the right middle lobe with instillation of 100 cc in return of 40 cc of cloudy opaque fluid. Conscious sedation was administered via dedicated nurse who continuously monitored patient's vital signs and cardiopulmonary status throughout the procedure. Total moderate sedation time was 20 min. EBL none Complications: None Impression: Undifferentiated pneumonia. Eosinophilic versus organizing. Items to Follow-up: BAL fluid sent cell count, diff, Gram stain and culture, cytology for silver stain. Biopsy sent for pathology evaluation S Jitendra Harden MD Pulmonary and Critical Care Medicine [phone]
[2019-03-05 17:18] VITALS: BP 127/65
== END 2019-03-05 17:31 | disposition home or self-care (01) ==
LOC: FSGY 13:27
PROVIDERS: ATTEND Internal Medicine Pulmonary Disease
PROC: 0B958ZX Drainage of Right Middle Lobe Bronchus, Via Natural or Artificial Opening Endoscopic, Diagnostic (ICD-10-PCS; principal; 2019-03-05 14:30)
PROC: 0BBF8ZX Excision of Right Lower Lung Lobe, Via Natural or Artificial Opening Endoscopic, Diagnostic (ICD-10-PCS; principal; 2019-03-05 14:30)
DX: J18.9 Pneumonia, unspecified organism (principal); J96.11 Chronic respiratory failure with hypoxia; I10 Essential (primary) hypertension; F41.9 Anxiety disorder, unspecified; G47.33 Obstructive sleep apnea (adult) (pediatric); M79.7 Fibromyalgia
CPT/HCPCS: J0171; J2250; J3010; J7613

== ENCOUNTER → 2019-04-10 | Outpatient (CLI) | payer OTHER | LOC: FIMAGING 16:22 ==

== ENCOUNTER → 2019-04-29 | Outpatient (CLI) | payer OTHER | LOC: FIMAGING 15:38 ==